=== PATIENT | female | born 1955 ===

== ENCOUNTER 2017-03-31 08:49 | Emergency (ER) | payer SELFPAY ==
[2017-03-31 08:50] VITALS: BMI 27.2
[2017-03-31] MEDS ORDERED: Sodium Chloride 0.9% 1,000 ML IV ONE (09:58)
[2017-03-31 10:05] LABS: RBC URINE 4 /hpf (0-3); URINE BILIRUBIN NEGATIVE (NEGATIVE); URINE BLOOD 1+ (NEGATIVE); URINE COLOR Yellow (YELLOW); URINE GLUCOSE (UA) NORMAL (Normal); URINE KETONE NEGATIVE (NEGATIVE); URINE LEUKOCYTE ESTERASE 3+ Leu/uL (Negative); URINE PROTEIN NEGATIVE (NEGATIVE); URINE UROBILINOGEN NORMAL mg/dL (0.2-1.0); WBC URINE 41 /hpf (0-5)
--- NOTE | 2017-03-31 10:08 | C.PDOC ---
History Of Present Illness 61 y/o female presents to the ED with complaints of RLQ pain shooting down right leg for the past few days. Pt denies fever, vomiting, diarrhea, weakness, numbness or any other complaints. 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 Limitations: no limitations Onset/Duration Of Symptoms: Days Current Symptoms Are (Timing): Still Present Severity: Moderate Location Of Pain/Discomfort: RLQ Radiation Of Pain To:: Leg Quality Of Discomfort: "Pain" Associated Symptoms: denies: Fever, Vomiting, Diarrhea Exacerbating Factors: None Alleviating Factors: None Recent travel outside of the [place]: No Past Medical History Reviewed: Historical Data, Nursing Documentation, Vital Signs Vital Signs: Last Vital Signs Temp 97.4 F L 03/31/17 12:59 Pulse 64 03/31/17 12:59 Resp 20 03/31/17 12:59 BP 168/66 H 03/31/17 12:59 Pulse Ox 98 03/31/17 12:59 - Medical History PMH: HTN, Hypercholesterolemia - [facility] Procedures COLONOSCOPY (10/18/13) Family History: States: Unknown Family Hx - Social History Hx Tobacco Use: No Hx Alcohol Use: No Hx Substance Use: No - Immunization History Hx Tetanus Toxoid Vaccination: No Hx Influenza Vaccination: No Hx Pneumococcal Vaccination: No Review Of Systems Except As Marked, All Systems Reviewed And Found Negative. Constitutional: Negative for: Fever Cardiovascular: Negative for: Chest Pain Respiratory: Negative for: Shortness of Breath Gastrointestinal: Positive for: Abdominal Pain (RLQ shooting down right leg). Negative for: Vomiting, Diarrhea Neurological: Negative for: Weakness, Numbness Physical Exam - Physical Exam Appears: Non-toxic, No Acute Distress Skin: Warm, Dry, No Rash Head: Atraumatic, Normacephalic Neck: Normal, Normal ROM, Supple Chest: Symmetrical Cardiovascular: Rhythm Regular, No Murmur Respiratory: Normal Breath Sounds, No Rales, No Rhonchi, No Wheezing Gastrointestinal/Abdominal: Soft, Tenderness (RLQ), No Guarding, No Rebound Back: No CVA Tenderness, Straight Leg Raising Extremity: Normal ROM, No Tenderness, No Swelling Neurological/Psych: Oriented x3, Normal Speech, Normal Motor, Normal Sensation ED Course And Treatment - Laboratory Results Result Diagrams: 03/31/17 10:11 03/31/17 10:11 Lab Interpretation: Normal O2 Sat by Pulse Oximetry: 99 (room air) Pulse Ox Interpretation: Normal - CT Scan/US No standard instances Other Rad Studies (CT/US): Read By Radiologist, Radiology Report Reviewed CT/US Interpretation: FINDINGS: LOWER THORAX: Unremarkable. LIVER: Unremarkable. No gross lesion or ductal dilatation. GALLBLADDER AND BILE DUCTS : Unremarkable. PANCREAS: Unremarkable. No gross lesion or ductal dilatation. SPLEEN: Unremarkable. ADRENALS: Unremarkable. No mass. KIDNEYS AND URETERS: Unremarkable. No hydronephrosis. No solid mass. VASCULATURE: Unremarkable. No aortic aneurysm. BOWEL: Pancolonic diverticulosis. No evidence diverticulitis. No bowel obstruction. APPENDIX: Not definitely identified. No secondary findings to suggest acute appendicitis. PERITONEUM: Unremarkable. No free fluid. No free air. LYMPH NODES: Unremarkable. No enlarged lymph nodes. BLADDER: Unremarkable. REPRODUCTIVE: Normal uterus. BONES: No acute fracture. OTHER FINDINGS: None. IMPRESSION: Pancolonic diverticulosis. No evidence of diverticulitis. No other significant abnormality identified. Progress Note: Plan: CT abdomen, labs, UA, IV fluids. Treated with toradol 30 mg IV. On re-evaluation ambulating with steady gait Reassessment Condition: Improved Disposition Counseled Patient/Family Regarding: Studies Performed, Diagnosis, Need For Followup - Disposition Referrals: [facility] [Outside] [facility] [employer]. 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 - Scribe Statement The provider has reviewed the documentation as recorded by the Cristian Richard All medical record entries made by the Doibe were at my direction and personally dictated by me. I have reviewed the chart and agree that the record accurately reflects my personal performance of the history, physical exam, medical decision making, and the department course for this patient. I have also personally directed, reviewed, and agree with the discharge instructions and disposition.
[2017-03-31] MEDS ORDERED: Sodium Chloride 0.9% 1,000 ML ONE (10:13)
[2017-03-31 10:15] LABS: BASO % 0.6 % (0.0-2.0); EOS # 0.1 K/uL (0.0-0.7); EOS % 1.7 % (0.0-4.0); HEMATOCRIT 38.6 % (34.0-47.0); LYMPH # 3.2 K/uL (1.0-4.3); MEAN CELL VOLUME 83.3 fL (81.0-99.0); MEAN CORPUSCULAR HEMOGLOBIN 28.2 pg (27.0-31.0); MEAN CORPUSCULAR HGB CONC 33.9 g/dL (33.0-37.0); MEAN PLATELET VOLUME 7.3 fL (7.2-11.7); MONO # 0.5 K/uL (0.0-0.8); RED CELL DISTRIBUTION WIDTH 13.7 % (11.5-14.5); WHITE BLOOD COUNT 6.9 K/uL (4.8-10.8)
[2017-03-31 10:22] LABS: CHLORIDE 100 mmol/L (98-107)
[2017-03-31 10:23] LABS: SODIUM 137 mmol/L (132-148)
[2017-03-31 10:25] LABS: ALB/GLOB RATIO 1.2 (1.0-2.1); ALKALINE PHOSPHATASE 88 U/L (38-126); ALT/SGPT 27 U/L (9-52); AST/SGOT 21 U/L (14-36); BILIRUBIN,TOTAL 0.6 mg/dL (0.2-1.3); BLOOD UREA NITROGEN 17 mg/dL (7-17); CARBON DIOXIDE 27 mmol/L (22-30); GFR AFRICAN-AMERICAN > 60; GLUCOSE,RANDOM 91 mg/dL (65-105)
[2017-03-31 10:26] LABS: CALCIUM 8.5 mg/dl (8.6-10.4)
--- NOTE | 2017-03-31 11:43 | CT ---
PROCEDURE: CT Abdomen and Pelvis without intravenous contrast HISTORY: Pain COMPARISON: None. TECHNIQUE: Without contrast.. Contrast Dose: 0 Radiation dose: Total exam DLP = 710.73 mGy-cm. This CT exam was performed using one or more of the following dose reduction techniques: Automated exposure control, adjustment of the mA and/or kV according to patient size, and/or use of iterative reconstruction technique. FINDINGS: LOWER THORAX: Unremarkable. LIVER: Unremarkable. No gross lesion or ductal dilatation. GALLBLADDER AND BILE DUCTS: Unremarkable. PANCREAS: Unremarkable. No gross lesion or ductal dilatation. SPLEEN: Unremarkable. ADRENALS: Unremarkable. No mass. KIDNEYS AND URETERS: Unremarkable. No hydronephrosis. No solid mass. VASCULATURE: Unremarkable. No aortic aneurysm. BOWEL: Pancolonic diverticulosis. No evidence diverticulitis. No bowel obstruction. APPENDIX: Not definitely identified. No secondary findings to suggest acute appendicitis. PERITONEUM: Unremarkable. No free fluid. No free air. LYMPH NODES: Unremarkable. No enlarged lymph nodes. BLADDER: Unremarkable. REPRODUCTIVE: Normal uterus. BONES: No acute fracture. OTHER FINDINGS: None. IMPRESSION: Pancolonic diverticulosis. No evidence of diverticulitis. No other significant abnormality identified.
[2017-03-31 13:03] VITALS: BP 168/66; PULSE 64; RESP 20; TEMP 97.4
[2017-03-31 18:00] VITALS: O2SAT 99
== END 2017-03-31 12:59 | disposition home or self-care (01) ==
LOC: C.ER 08:49
DX: R10.31 Right lower quadrant pain (principal); M54.5 Low back pain
CPT/HCPCS: 74176; 80053; 81001; 85025; 96361; 96374; 99285; J1885; J7040

== ENCOUNTER 2017-04-01 15:46 | Emergency (ER) | payer OTHER ==
[2017-04-01 15:53] VITALS: BMI 26.9
[2017-04-01] MEDS ORDERED: Iohexol 350mg/ml 100 ML ONE (16:36)
--- NOTE | 2017-04-01 16:59 | C.PDOC ---
History Of Present Illness 61 y/o female sent to ED from clinic for concern of appendicitis. Pt states she fell off of bed yesterday onto her right side, was in our ED for evaluation - blood work and CT abd/pelvis no contrast done. Today patient went to clinic for follow up and was sent to E by them. She denies fever/chills, vomiting, diarrhea, chest pain, SOB, dysuria. Time Seen by Provider: 04/01/17 16:05 Chief Complaint (Nursing): Abdominal Pain History Per: Patient History/Exam Limitations: no limitations Onset/Duration Of Symptoms: Hrs Current Symptoms Are (Timing): Still Present Severity: Moderate Location Of Pain/Discomfort: RLQ Radiation Of Pain To:: None Quality Of Discomfort: "Pain" Associated Symptoms: denies: Fever, Chills, Vomiting, Diarrhea Exacerbating Factors: None Alleviating Factors: None Recent travel outside of the [place]: No Past Medical History Reviewed: Historical Data, Nursing Documentation, Vital Signs Vital Signs: Last Vital Signs Temp 97.5 F L 04/01/17 19:36 Pulse 61 04/01/17 19:36 Resp 19 04/01/17 19:36 BP 161/75 H 04/01/17 19:36 Pulse Ox 98 04/01/17 19:36 - Medical History PMH: HTN - [facility] Procedures COLONOSCOPY (10/18/13) Family History: States: No Known Family Hx - Social History Hx Tobacco Use: No Hx Alcohol Use: No Hx Substance Use: No - Immunization History Hx Tetanus Toxoid Vaccination: No Hx Influenza Vaccination: No Hx Pneumococcal Vaccination: No Review Of Systems Except As Marked, All Systems Reviewed And Found Negative. Constitutional: Negative for: Fever, Chills Cardiovascular: Negative for: Chest Pain, Palpitations Respiratory: Negative for: Cough, Shortness of Breath Gastrointestinal: Positive for: Abdominal Pain. Negative for: Nausea, Vomiting , Diarrhea Genitourinary: Negative for: Dysuria, Hematuria, Vaginal Discharge, Vaginal Bleeding Physical Exam - Physical Exam Appears: Well, Non-toxic, No Acute Distress Skin: Warm, Dry, No Rash Head: Normacephalic Oral Mucosa: Moist Cardiovascular: Rhythm Regular Respiratory: Normal Breath Sounds, No Rales, No Rhonchi, No Wheezing Gastrointestinal/Abdominal: Bowel Sounds, Soft, Tenderness ((+) RLQ TTP and periumbilical TTP), No Distention, No Guarding, No Rebound Back: Normal Inspection, No CVA Tenderness Extremity: Normal ROM, Tenderness (mild tenderness to palpation of right hip, no deformity, ROM intact), No Calf Tenderness, No Deformity, No Swelling Extremity: Bilateral: Normal ROM Pulses: Left Dorsalis Pedis: Normal, Right Dorsalis Pedis: Normal Neurological/Psych: Oriented x3 ED Course And Treatment - Laboratory Results Result Diagrams: 04/01/17 17:04 04/01/17 17:04 O2 Sat by Pulse Oximetry: 99 (room air) Pulse Ox Interpretation: Normal Progress Note: Plan: Blood work, CT pelvis with PO/IV contrast ordered. IV NS bolus, IV toradol ordered. Reevaluation Time: 19:30 Reassessment Condition: Improved (On reassessmen, patient is resting comfortably , pain has improved. On exam, abdomen is currnently soft and nontender. Blood work and CT scan unremarkable. Patient well appearing, ambulating normally. Will discharge home, instructed patient to follow up with PMD/clinic in 1-2 days. She understands she should return to ED if symptoms worsen.) Disposition Counseled Patient/Family Regarding: Studies Performed, Diagnosis, Need For Followup, Rx Given - Disposition Referrals: [facility] [Outside] Lawrence Duran III, MD [Staff Provider] - Disposition: HOME/ ROUTINE Disposition Time: 19:30 Condition: STABLE Additional Instructions: FOLLOW UP WITH YOUR DOCTOR IN 1-2 DAYS USE MEDICATION NEEDED FOR PAIN RETURN TO EMERGENCY ROOM IF SYMPTOMS WORSEN SEGUIMIENTO CON ORTIZ MDICO EN 1-2 SANCHEZ USE EL MEDICAMENTO QUE SE NECESITA PARA EL DOLOR DEVUELVA A LA FERN DE EMERGENCIA SI LOS SNTOMAS EMPEORARAN Prescriptions: Acetaminophen with Codeine [Tylenol with Codeine #3 Tablet] 1 each PO Q6 PRN # 12 tablet PRN Reason: pain Instructions: Acute Abdominal Pain (ED), Hip Pain (ED) Print Language: ICELANDIC - POA Present On Arrival: Falls Or Trauma - Clinical Impression Clinical Impression: Abdominal pain, Hip pain, right - Scribe Statement The provider has reviewed the documentation as recorded by the Cristian Richard Provider Attestation: All medical record entries made by the Doiblindsay were at my direction and personally dictated by me. I have reviewed the chart and agree that the record accurately reflects my personal performance of the history, physical exam, medical decision making, and the department course for this patient. I have also personally directed, reviewed, and agree with the discharge instructions and disposition.
[2017-04-01] MEDS: Iohexol 240 (50 ml) PO STA (17:00)
[2017-04-01] MEDS ORDERED: Iohexol 240 (50 ml) ONE (17:03)
[2017-04-01 17:09] LABS: BASO # 0.1 K/uL (0.0-0.2); BASO % 0.8 % (0.0-2.0); EOS # 0.1 K/uL (0.0-0.7); EOS % 1.9 % (0.0-4.0); HEMATOCRIT 40.4 % (34.0-47.0); LYMPH # 4.3 K/uL (1.0-4.3); LYMPH % 54.9 % (20.0-40.0); MEAN CELL VOLUME 83.5 fL (81.0-99.0); MEAN CORPUSCULAR HEMOGLOBIN 28.1 pg (27.0-31.0); MEAN CORPUSCULAR HGB CONC 33.7 g/dL (33.0-37.0); MEAN PLATELET VOLUME 7.3 fL (7.2-11.7); MONO # 0.4 K/uL (0.0-0.8); MONO % 5.7 % (0.0-10.0); NRBC % 0.1 % (0.0-2.0); RED CELL DISTRIBUTION WIDTH 13.3 % (11.5-14.5); WHITE BLOOD COUNT 7.9 K/uL (4.8-10.8)
[2017-04-01 17:25] LABS: CHLORIDE 103 mmol/L (98-107); POTASSIUM 3.9 mmol/L (3.6-5.2); SODIUM 140 mmol/L (132-148)
[2017-04-01 17:27] LABS: ALB/GLOB RATIO 1.2 (1.0-2.1); ALKALINE PHOSPHATASE 99 U/L (38-126); ALT/SGPT 25 U/L (9-52); AST/SGOT 29 U/L (14-36); BILIRUBIN,TOTAL 0.7 mg/dL (0.2-1.3); BLOOD UREA NITROGEN 21 mg/dL (7-17); CALCIUM 9.7 mg/dl (8.6-10.4); CARBON DIOXIDE 26 mmol/L (22-30); GFR AFRICAN-AMERICAN > 60; GLUCOSE,RANDOM 96 mg/dL (65-105); TOTAL PROTEIN 7.6 g/dL (6.3-8.3)
--- NOTE | 2017-04-01 19:17 | CT ---
EXAM: CT Abdomen and Pelvis With Intravenous Contrast CLINICAL HISTORY: 61 years old, female; Pain; Abdominal pain; Generalized; Additional info: Persistent rlq pain, R/O appendicitis TECHNIQUE: Axial computed tomography images of the abdomen and pelvis with intravenous contrast. This CT exam was performed using one or more of the following dose reduction techniques: automated exposure control, adjustment of the mA and/or kV according to patient size, and/or use of iterative reconstruction technique. Coronal and sagittal reformatted images were created and reviewed. CONTRAST: 100 mL of omni 350 administered intravenously. COMPARISON: Prior images are not available for review. Exam Date/Time: 04/01/2017 4:22 PM FINDINGS: Lower thorax: The heart is mildly enlarged. There is minimal atelectasis/scarring at the lung bases. ABDOMEN: Liver: There is fatty infiltration of the liver. Gallbladder and bile ducts: unremarkable Pancreas: Pancreas is mildly atrophic. Spleen: unremarkable Adrenals: unremarkable Kidneys and ureters: unremarkable Stomach and bowel: Stomach is distended with an air-fluid level. Rotation is normal. There is no obstruction. There is fecalization of the terminal ileum. Appendix is not visualized. There is no pericecal inflammation. There is moderate stool in the colon. There is extensive diverticulosis. Appendix: See stomach and bowel PELVIS: Bladder: unremarkable Reproductive: Uterus and adnexal structures are unremarkable. ABDOMEN and PELVIS: Intraperitoneal space: There is no free air or free fluid. Bones/joints: There are degenerative changes in the osseus structures. Soft tissues: There is a fat-containing umbilical hernia. There calcifications in both buttocks. Vasculature: There are vascular calcifications. There are multiple phleboliths. Lymph nodes: There is no pathologic adenopathy. There is no pathologic adenopathy. IMPRESSION: Nonvisualization of the appendix but no CT findings of appendicitis; extensive colonic diverticulosis without CT findings of diverticulitis; fatty liver Additional findings as described above.
[2017-04-01 19:36] VITALS: BP 161/75; PULSE 61; RESP 19; TEMP 97.5
[2017-04-07 10:10] VITALS: O2SAT 99
== END 2017-04-01 19:45 | disposition home or self-care (01) ==
LOC: C.ER 15:46
DX: R10.9 Unspecified abdominal pain (principal); M25.551 Pain in right hip
CPT/HCPCS: 74177; 80053; 85025; 96374; 99285; J1885; Q9966; Q9967